=== PATIENT | female | born 1965 | race Caucasian/White ===

== ENCOUNTER 2020-01-17 13:06 | Emergency (ER) | payer OTHER ==
[~2020-01-17] VITALS: Ht 167.6 cm; Wt 70.3 kg
--- NOTE | 2020-01-17 13:14 | NUR ---
Dr blanco at the bedside for MSE.
[2020-01-17 13:43] VITALS: BP 114/88
--- NOTE | 2020-01-17 13:43 | NUR ---
Patient discharged to home in stable conditon. Written and verbal after care instructions given. Patient verbalizes understanding of instructions.
== END 2020-01-17 13:48 | disposition home or self-care (01) ==
LOC: ER 13:06
DX: S60.042A Contusion of left ring finger without damage to nail, initial encounter (principal); W22.8XXA Striking against or struck by other objects, initial encounter; Y93.89 Activity, other specified; Y92.89 Other specified places as the place of occurrence of the external cause; Y99.8 Other external cause status
CPT/HCPCS: 73140; A4663